=== PATIENT | female | born 1960 | race Caucasian/White ===

== ENCOUNTER → 2024-05-02 13:07 | Outpatient (REF) | payer OTHER, SELFPAY | LOC: WDC 13:07 | PROVIDERS: ATTENDING PHYSICIAN Family Medicine | DX: Z12.31 Encounter for screening mammogram for malignant neoplasm of breast (principal) | CPT/HCPCS: 77063; 77067 ==

== ENCOUNTER → 2024-11-16 12:50 | Outpatient (REF) | payer OTHER, SELFPAY | LOC: WDC 12:50 | PROVIDERS: ATTENDING PHYSICIAN Nurse Practitioner Obstetrics & Gynecology; FAMILY PHYSICIAN Family Medicine | DX: R92.333 Mammographic heterogeneous density, bilateral breasts (principal); Z13.820 Encounter for screening for osteoporosis | CPT/HCPCS: 76641; 77080 ==